=== PATIENT | male | born 1935 | race Caucasian/White ===

== ENCOUNTER 2017-06-20 18:00 | Inpatient (IN) | payer MEDICARE ==
[2017-06-20] MEDS ORDERED: Sodium Chloride 0.9% 1,000 ML IV ONE (19:21)
--- NOTE | 2017-06-20 19:23 | C.PDOC ---
History Of Present Illness 82 year old male with PMHx of DM presents to the ED for evaluation of high blood sugar and dizziness for approximately a week. Patient states he has been having also urinary frequency, excessive thirst also for the past week. Patient states he went to see his PMD yesterday who gave him some insulin to control his DM.Patient also states having some nausea, vomit and abdominal pain as well for the past few days .Patient reports he started taking pills for his DM and now is using insulin. Patient denies SOB, CP, diarrhea, abdominal pain, weakness , numbness. Chief Complaint (Nursing): High Blood Sugar History Per: Patient History/Exam Limitations: no limitations Onset/Duration Of Symptoms: Days Current Symptoms Are (Timing): Still Present Current Diabetic Medications: Insulin Associated Infectious Symptoms: Urinary Frequency, Nausea, Vomiting Recent travel outside of the [place]: No Additional History Per: Patient Past Medical History Reviewed: Historical Data, Nursing Documentation, Vital Signs Vital Signs: Last Vital Signs Temp 98.0 F 06/20/17 18:18 Pulse 83 06/20/17 18:18 Resp 22 06/20/17 18:18 BP 162/60 H 06/20/17 18:18 Pulse Ox 95 06/21/17 02:48 - Medical History PMH: Diabetes, HTN, Hypercholesterolemia Denies: Chronic Kidney Disease Surgical History: CABG (X4) - [facility] Procedures MEASURE OF CARDIAC SAMPL & PRESSURE, L HEART, PERC APPROACH (07/12/15) PLAIN RADIOGRAPHY OF LEFT HEART USING OTHER CONTRAST (07/12/15) PLAIN RADIOGRAPHY OF MULT COR ART USING OTH CONTRAST (07/12/15) Family History: States: Unknown Family Hx - Social History Hx Alcohol Use: No Hx Substance Use: No - Immunization History Hx Tetanus Toxoid Vaccination: No Hx Influenza Vaccination: No Hx Pneumococcal Vaccination: No Review Of Systems Constitutional: Negative for: Fever, Chills Cardiovascular: Negative for: Chest Pain Respiratory: Negative for: Cough, Shortness of Breath Gastrointestinal: Positive for: Nausea, Vomiting. Negative for: Abdominal Pain , Diarrhea Genitourinary: Positive for: Frequency Skin: Negative for: Rash Neurological: Positive for: Dizziness. Negative for: Weakness, Numbness, Headache Physical Exam - Physical Exam Appears: Non-toxic, No Acute Distress Skin: Normal Color, Warm, Dry Head: Atraumatic, Normacephalic Eye(s): bilateral: Normal Inspection Nose: No Discharge, No Deformity Oral Mucosa: Moist Neck: Normal ROM, Supple Chest: Symmetrical, Other (sternotomy scar) Cardiovascular: Rhythm Regular, No Murmur Respiratory: Normal Breath Sounds, No Rales, No Rhonchi, No Wheezing Gastrointestinal/Abdominal: Soft, No Tenderness, No Guarding, No Rebound Extremity: Normal ROM, No Tenderness, No Pedal Edema, No Swelling Neurological/Psych: Oriented x3, Normal Speech, Normal Cognition Gait: Steady ED Course And Treatment - Laboratory Results Result Diagrams: 06/20/17 19:48 06/20/17 19:48 O2 Sat by Pulse Oximetry: 95 (ON RA) Pulse Ox Interpretation: Normal - CT Scan/US US abdomen Other Rad Studies (CT/US): Read By Radiologist, Radiology Report Reviewed CT/US Interpretation: EXAM: US Abdomen Limited, Right Upper Quadrant. CLINICAL HISTORY: 82 years old, male; Pain; Abdominal pain; Epigastric. TECHNIQUE: Real-time ultrasound of the right upper quadrant with image documentation. COMPARISON: No relevant prior studies available. FINDINGS: Artifacts: Limited due to bowel gas shadowing. Limited due to shadowing from the ribs. Liver: The liver measures 15.10 cm. Limited evaluation of the liver due to shadowing. There is. hepatic pedal flow in the portal vein. Gallbladder : There is distention of gallbladder with gallstones. The gallbladder wall measures 1. mm.There was no right upper quadrant tenderness during the sonographic examination. Correlation. with patient's pain medication status is recommended. Common bile duct: The common bile duct measures 7 mm which is normal for patient's age. Pancreas: The pancreas is not well-seen. Echogenic pancreas. Right kidney: The right kidney measures 9.6 x 5.0 x 5.6 cm. No stones. No hydronephrosis. Aorta: Limited visualization of proximal aorta measuring 2.3 cm. IMPRESSION: 1. There is distention of gallbladder with gallstones. The gallbladder wall measures 1 mm.There was. no right upper quadrant tenderness during the sonographic examination. Correlation with patient 's. pain medication status is recommended. Medical Decision Making Medical Decision Making: Impression: High blood sugar vs DM Plan: * Labs * Elevated transaminaces and elevated billirubin * IV fluids * Zofran 4 mg IVP * US abdomen Disposition - Disposition Disposition: HOSPITALIZED Disposition Time: 02:47 Condition: GUARDED Forms: [facility] (Italian) - Clinical Impression Clinical Impression: Choledocholithiasis, Hyperglycemia - Scribe Statement The provider has reviewed the documentation as recorded by the Scribe Amaury Stevenson All medical record entries made by the Scribe were at my direction and personally dictated by me. I have reviewed the chart and agree that the record accurately reflects my personal performance of the history, physical exam, medical decision making, and the department course for this patient. I have also personally directed, reviewed, and agree with the discharge instructions and disposition.
[2017-06-20] MEDS ORDERED: Sodium Chloride 0.9% 1,000 ML ONE (19:28)
[2017-06-20 19:55] LABS: BASO # 0.1 K/uL (0.0-0.2); BASO % 1.1 % (0.0-2.0); EOS # 0.2 K/uL (0.0-0.7); EOS % 2.3 % (0.0-4.0); HEMOGLOBIN 12.3 g/dL (12.0-18.0); LYMPH # 3.6 K/uL (1.0-4.3); LYMPH % 36.7 % (20.0-40.0); MEAN CELL VOLUME 92.4 fL (80.0-94.0); MEAN CORPUSCULAR HEMOGLOBIN 31.8 pg (27.0-31.0); MEAN CORPUSCULAR HGB CONC 34.4 g/dL (33.0-37.0); MEAN PLATELET VOLUME 9.7 fL (7.2-11.7); MONO # 0.7 K/uL (0.0-0.8); MONO % 6.6 % (0.0-10.0); NEUT # 5.3 K/uL (1.8-7.0); NEUT % 53.3 % (50.0-75.0); RBC 3.87 Mil/uL (4.40-5.90); RED CELL DISTRIBUTION WIDTH 14.2 % (11.5-14.5); WHITE BLOOD COUNT 9.9 K/uL (4.8-10.8)
[2017-06-20 20:14] LABS: ALBUMIN 3.8 g/dL (3.5-5.0); ALT/SGPT 201 U/L (21-72); AST/SGOT 106 U/L (17-59); BLOOD UREA NITROGEN 21 mg/dL (9-20); CALCIUM 9.1 mg/dl (8.6-10.4); GFR AFRICAN-AMERICAN > 60; GFR NON-AFRICAN AMERICAN > 60; LIPASE 137 U/L (23-300)
[2017-06-21] MEDS ORDERED: (Novolin R) Insulin Human Regular 100 units/ml vial IV ONE (00:44)
[2017-06-21] MEDS ORDERED: (Novolin R) Insulin Human Regular 100 units/ml vial ONE (00:51)
--- NOTE | 2017-06-21 02:41 | US ---
EXAM: US Abdomen Limited, Right Upper Quadrant CLINICAL HISTORY: 82 years old, male; Pain; Abdominal pain; Epigastric TECHNIQUE: Real-time ultrasound of the right upper quadrant with image documentation. COMPARISON: No relevant prior studies available. FINDINGS: Artifacts: Limited due to bowel gas shadowing. Limited due to shadowing from the ribs. Liver: The liver measures 15.10 cm. Limited evaluation of the liver due to shadowing. There is hepatic pedal flow in the portal vein. Gallbladder: There is distention of gallbladder with gallstones. The gallbladder wall measures 1 mm.There was no right upper quadrant tenderness during the sonographic examination. Correlation with patient's pain medication status is recommended. Common bile duct: The common bile duct measures 7 mm which is normal for patient's age. Pancreas: The pancreas is not well-seen. Echogenic pancreas. Right kidney: The right kidney measures 9.6 x 5.0 x 5.6 cm. No stones. No hydronephrosis. Aorta: Limited visualization of proximal aorta measuring 2.3 cm. IMPRESSION: 1. There is distention of gallbladder with gallstones. The gallbladder wall measures 1 mm.There was no right upper quadrant tenderness during the sonographic examination. Correlation with patient's pain medication status is recommended.
--- NOTE | 2017-06-21 05:16 | CP.PCM.CON ---
History of Present Illness - History of Present Illness History of Present Illness: General Surgery Dr. Lea 82 y/o M w/ PMHx of CAD and uncontrolled DM2 presents to the ED c/o elevated blood glucose and dizziness x1wk. Over the last week, pt also reports concordant polyuria and polydipsia. Pt was seen by PMD yesterday and was started on insulin. Pt reports nause and NBNB vomiting x2-3 episodes yesterday. Pt denies F/C, PO intolerance, abd pain, D/C. PMHx: see above, HTN, HLD Meds: reviewed in chart NKDA PSHx: CABG SHx: denies tobacco, EtOH, drug use FHx: noncontributory Review of Systems - Review of Systems All systems: reviewed and no additional remarkable complaints except (see HPI) Past Patient History - Infectious Disease Hx of Infectious Diseases: None - Past Medical History & Family History Past Medical History?: Yes - Past Social History Smoking Status: Never Smoked - CARDIAC Hx Hypercholesterolemia: Yes Hx Hypertension: Yes - PULMONARY Hx Respiratory Disorders: No - NEUROLOGICAL Hx Neurological Disorder: No - HEENT Hx HEENT Problems: No - RENAL Hx Chronic Kidney Disease: No - ENDOCRINE/METABOLIC Hx Endocrine Disorders: Yes Hx Diabetes Mellitus Type 2: Yes - HEMATOLOGICAL/ONCOLOGICAL Hx Blood Disorders: No - INTEGUMENTARY Hx Dermatological Problems: No - MUSCULOSKELETAL/RHEUMATOLOGICAL Hx Musculoskeletal Disorders: No Hx Falls: Yes - GASTROINTESTINAL Hx Gastrointestinal Disorders: No - GENITOURINARY/GYNECOLOGICAL Hx Genitourinary Disorders: No - PSYCHIATRIC Hx Substance Use: No - SURGICAL HISTORY Hx Coronary Artery Bypass Graft: Yes (X4) - ANESTHESIA Hx Anesthesia: Yes Hx Anesthesia Reactions: No Hx Malignant Hyperthermia: No Meds Allergies/Adverse Reactions: Allergies Allergy/AdvReac Type Severity Reaction Status Date / Time No Known Allergies Allergy Verified 07/11/15 14:18 Physical Exam - Constitutional Appears: Non-toxic, No Acute Distress - Head Exam Head Exam: NORMAL INSPECTION - Eye Exam Eye Exam: Normal appearance - ENT Exam ENT Exam: Mucous Membranes Moist - Respiratory Exam Respiratory Exam: NORMAL BREATHING PATTERN. absent: Accessory Muscle Use, Respiratory Distress - GI/Abdominal Exam GI & Abdominal Exam: Soft. absent: Distended, Firm, Guarding, Rebound, Tenderness - Expanded GI/Abdominal Exam Expanded Expanded GI & Abdominal Exam: absent: Mckeon's Sign - Extremities Exam Extremities exam: Positive for: normal inspection. Negative for: pedal edema - Neurological Exam Neurological exam: Alert, Oriented x3 - Psychiatric Exam Psychiatric exam: Normal Affect, Normal Mood - Skin Skin Exam: Dry, Intact, Normal Color, Warm Results - Vital Signs Recent Vital Signs: Last Vital Signs Temp 98.3 F 06/21/17 04:43 Pulse 83 06/21/17 04:43 Resp 20 06/21/17 04:43 BP 149/80 06/21/17 04:43 Pulse Ox 98 06/21/17 04:43 - Labs Result Diagrams: 06/20/17 19:48 06/20/17 19:48 Labs: Laboratory Results - last 24 hr 06/20/17 06/20/17 06/20/17 19:48 19:48 20:41 WBC 9.9 RBC 3.87 L Hgb 12.3 Hct 35.8 MCV 92.4 MCH 31.8 H MCHC 34.4 RDW 14.2 Plt Count 391 MPV 9.7 Neut % (Auto) 53.3 Lymph % (Auto) 36.7 [place] % (Auto) 6.6 Eos % (Auto) 2.3 Baso % (Auto) 1.1 Neut # (Auto) 5.3 Lymph # (Auto) 3.6 [place] # (Auto) 0.7 Eos # (Auto) 0.2 Baso # (Auto) 0.1 Sodium 132 Potassium 4.0 Chloride 94 L Carbon Dioxide 27 Anion Gap 15 BUN 21 H Creatinine 1.0 Est GFR ( Amer) > 60 Est GFR (Non-Af Amer) > 60 POC Glucose (mg/dL) 317 H Random Glucose 421 H* D Calcium 9.1 Total Bilirubin 2.2 H AST 106 H ALT 201 H D Alkaline Phosphatase 1299 H Total Protein 7.7 Albumin 3.8 Globulin 3.9 Albumin/Globulin Ratio 1.0 Lipase 137 06/20/17 06/21/17 06/21/17 22:00 00:05 03:06 WBC RBC Hgb Hct MCV MCH MCHC RDW Plt Count MPV Neut % (Auto) Lymph % (Auto) [place] % (Auto) Eos % (Auto) Baso % (Auto) Neut # (Auto) Lymph # (Auto) [place] # (Auto) Eos # (Auto) Baso # (Auto) Sodium Potassium Chloride Carbon Dioxide Anion Gap BUN Creatinine Est GFR ( Amer) Est GFR (Non-Af Amer) POC Glucose (mg/dL) 332 H 283 H 200 H Random Glucose Calcium Total Bilirubin AST ALT Alkaline Phosphatase Total Protein Albumin Globulin Albumin/Globulin Ratio Lipase - Imaging and Cardiology US - abdomen Status: Image reviewed by me, Report reviewed by me Assessment & Plan - Assessment and Plan (Free Text) Assessment: 82 y/o M w/ uncontrolled DM2 and cholelithiasis - Abd US: cholelithiasis but no signs of acute cholecystitis or choledocholithiais - elevated LFTs --> hepatitis panel; GI consult - medical management for uncontrolled DM2 - trend LFTs - no surgical intervention at this time Will discuss w/ Dr. Venu Branham DO PGY2
[2017-06-21] MEDS: Enoxaparin 40 mg Syringe SC SCH (11:02)
[2017-06-21] MEDS ORDERED: (Novolog Mix 70/30) Insulin Aspart/Insulin Aspar 100 units/ml SC SCH ×2 (11:30→22:00)
[2017-06-21] MEDS: Metoprolol Succinate 50 mg XL Tab PO SCH (12:36)
[2017-06-21] MEDS: Pantoprazole 40 mg EC Tab PO SCH (12:36)
[2017-06-21] MEDS: (Novolog Mix 70/30) Insulin Aspart/Insulin Aspar 100 units/ml SC SCH (12:37)
[2017-06-21 13:51] LABS: HEMOGLOBIN 11.7 g/dL (12.0-18.0); MEAN CELL VOLUME 92.9 fL (80.0-94.0); MEAN CORPUSCULAR HEMOGLOBIN 32.4 pg (27.0-31.0); MEAN CORPUSCULAR HGB CONC 34.8 g/dL (33.0-37.0); MEAN PLATELET VOLUME 9.5 fL (7.2-11.7); RBC 3.62 Mil/uL (4.40-5.90); RED CELL DISTRIBUTION WIDTH 14.4 % (11.5-14.5); WHITE BLOOD COUNT 8.2 K/uL (4.8-10.8)
[2017-06-21 14:15] LABS: ALBUMIN 3.5 g/dL (3.5-5.0); ALT/SGPT 153 U/L (21-72); AST/SGOT 85 U/L (17-59); BLOOD UREA NITROGEN 19 mg/dL (9-20); CALCIUM 8.5 mg/dl (8.6-10.4); GFR AFRICAN-AMERICAN > 60; GFR NON-AFRICAN AMERICAN > 60
[2017-06-21] MEDS ORDERED: (Novolog) Insulin Aspart, Recombinant 100 u/ml 10 ml vial SC ONE (14:30)
--- NOTE | 2017-06-21 14:35 | CP.PCM.PN ---
Subjective - Date & Time of Evaluation Date of Evaluation: 06/21/17 Time of Evaluation: 14:35 - Subjective Subjective: PATIENT WAS ADMITTING FOR CHOLECHOLITHIASIS; PATIENT IS AAO X 3; DENIES CHEST PAIN SOB, NAUSEA OR VOMITING NO SIGN OF DISTRESS NOTED Objective - Vital Signs/Intake and Output Vital Signs (last 24 hours): Temp Pulse Resp BP Pulse Ox 97.6 F 79 20 162/81 H 96 06/21/17 08:25 06/21/17 08:25 06/21/17 08:25 06/21/17 08:25 06/21/17 08:25 - Medications Medications: Current Medications Aspirin (Ecotrin) 81 mg PO DAILY [facility] Last Admin: 06/21/17 12:37 Dose: 81 mg Enoxaparin Sodium (Lovenox) 40 mg SC DAILY [facility] Last Admin: 06/21/17 11:02 Dose: 40 mg Cefepime HCl (Maxipime Iv 1 Gm Premix) 1 gm in 50 mls @ 100 mls/hr IVPB Q12H [facility] Insulin Aspart (Novolog Mix 70/30 (70/30 Units/Ml)) 50 units SC HS [facility] Insulin Aspart (Novolog Mix 70/30 (70/30 Units/Ml)) 40 units SC DAILY [facility] Last Admin: 06/21/17 12:37 Dose: 40 units Insulin Aspart (Novolog) 4 unit SC ONCE ONE Stop: 06/21/17 14:31 Levothyroxine Sodium (Synthroid) 25 mcg PO DAILY@0630 [facility] Losartan Potassium (Cozaar) 50 mg PO DAILY [facility] Last Admin: 06/21/17 12:36 Dose: 50 mg Metoprolol Succinate (Toprol Xl) 50 mg PO DAILY [facility] Last Admin: 06/21/17 12:36 Dose: 50 mg Pantoprazole Sodium (Protonix Ec Tab) 40 mg PO DAILY [facility] Last Admin: 06/21/17 12:36 Dose: 40 mg Rosuvastatin Calcium (Crestor) 5 mg PO HS [facility] - Labs Labs: 06/21/17 13:45 06/21/17 13:45 Assessment and Plan - Assessment and Plan (Free Text) Assessment: PATIENT WAS SEEN AND EXAMINED AT THE BEDSIDE GALLBLADDER US SHOW DISTENTION OF THE GALLBLADDER WITH GALLSTONE MEASURE 1MM AND NO RIGHT QUADRAT PAIN NOTED DISCUSS WITH PMD AND SX TEAM NO SURGICAL INTERVENTION AT THIS TIME FOLLOW UP WITH DR Faina BENOIT IN A WEEK AT HIS OFFICE ---CALL FOR APPOINTMENT CONTINUE ALL YOUR HOME MEDICATION ORDER ACTIVITY TOLERATED CALL DR BENOIT OR GO TO THE EMERGENCY ROOM IF SYMPTOM RETURN OR WORSENING DISCUSS WITH PATIENT WHO AGREE AND VERBALIZED UNDERSTANDING
[2017-06-21 15:32] LABS: EOS # 0.1 K/uL (0.0-0.7); LYMPH # 1.7 K/uL (1.0-4.3); MONO # 0.5 K/uL (0.0-0.8)
[2017-06-21] MEDS: Cefepime IV 1 gm in Dextrose 1 GM/50 ML BAG IVPB SCH (16:20)
[2017-06-21] MEDS ORDERED: (Novolog) Insulin Aspart, Recombinant 100 u/ml 10 ml vial SC SCH (16:30)
--- NOTE | 2017-06-21 18:43 | CP.PCM.HP ---
Past Patient History - Infectious Disease Hx of Infectious Diseases: None - Past Medical History & Family History Past Medical History?: Yes - Past Social History Smoking Status: Never Smoked - CARDIAC Hx Cardiac Disorders: Yes (CAD, CABGx4) Hx Hypercholesterolemia: Yes Hx Hypertension: Yes - PULMONARY Hx Respiratory Disorders: No - NEUROLOGICAL Hx Neurological Disorder: No - HEENT Hx HEENT Problems: No - RENAL Hx Chronic Kidney Disease: No - ENDOCRINE/METABOLIC Hx Diabetes Mellitus Type 2: Yes - HEMATOLOGICAL/ONCOLOGICAL Hx Blood Disorders: No - INTEGUMENTARY Hx Dermatological Problems: No - MUSCULOSKELETAL/RHEUMATOLOGICAL Hx Musculoskeletal Disorders: No Hx Falls: Yes - GASTROINTESTINAL Hx Gastrointestinal Disorders: No - GENITOURINARY/GYNECOLOGICAL Hx Genitourinary Disorders: No - PSYCHIATRIC Hx Substance Use: No - SURGICAL HISTORY Hx Coronary Artery Bypass Graft: Yes (X4) - ANESTHESIA Hx Anesthesia: Yes Hx Anesthesia Reactions: No Hx Malignant Hyperthermia: No Meds Home Medications: Home Medication List Medication Instructions Recorded Confirmed Type Aspirin [Ecotrin] 81 mg PO DAILY tabec 06/21/17 Rx Insulin Aspart/Insulin Aspar 40 units SC DAILY unit 06/21/17 Rx [Novolog Mix 70/30 (70/30 units/ml)] Insulin Aspart/Insulin Aspar 50 units SC HS unit 06/21/17 Rx [Novolog Mix 70/30 (70/30 units/ml)] Levothyroxine [Synthroid] 25 mcg PO DAILY@0630 tab 06/21/17 Rx Losartan [Cozaar] 50 mg PO DAILY tab 06/21/17 Rx Metoprolol Succinate [Toprol XL] 50 mg PO DAILY tab 06/21/17 Rx Pantoprazole [Protonix EC Tab] 40 mg PO DAILY ect 06/21/17 Rx Allergies/Adverse Reactions: Allergies Allergy/AdvReac Type Severity Reaction Status Date / Time No Known Allergies Allergy Verified 07/11/15 14:18 Physical Exam - Constitutional Appears: Well - Head Exam Head Exam: ATRAUMATIC, NORMAL INSPECTION, NORMOCEPHALIC - Eye Exam Eye Exam: EOMI, Normal appearance, PERRL Pupil Exam: NORMAL ACCOMODATION, PERRL - ENT Exam ENT Exam: Mucous Membranes Moist, Normal Exam - Neck Exam Neck exam: Positive for: Normal Inspection - Respiratory Exam Respiratory Exam: Decreased Breath Sounds - Cardiovascular Exam Cardiovascular Exam: REGULAR RHYTHM, +S1, +S2 - GI/Abdominal Exam GI & Abdominal Exam: Diminished Bowel Sounds, Soft - Rectal Exam Rectal Exam: Deferred Results - Vital Signs Recent Vital Signs: Last Vital Signs Temp 97.6 F 06/21/17 08:25 Pulse 79 06/21/17 08:25 Resp 20 06/21/17 08:25 BP 162/81 H 06/21/17 08:25 Pulse Ox 96 06/21/17 08:25 - Labs Result Diagrams: 06/21/17 13:45 06/21/17 13:45 Labs: Laboratory Results - last 24 hr 06/20/17 06/20/17 06/20/17 19:48 19:48 20:41 WBC 9.9 RBC 3.87 L Hgb 12.3 Hct 35.8 MCV 92.4 MCH 31.8 H MCHC 34.4 RDW 14.2 Plt Count 391 MPV 9.7 Neut % (Auto) 53.3 Lymph % (Auto) 36.7 [place] % (Auto) 6.6 Eos % (Auto) 2.3 Baso % (Auto) 1.1 Neut # (Auto) 5.3 Lymph # (Auto) 3.6 [place] # (Auto) 0.7 Eos # (Auto) 0.2 Baso # (Auto) 0.1 Sodium 132 Potassium 4.0 Chloride 94 L Carbon Dioxide 27 Anion Gap 15 BUN 21 H Creatinine 1.0 Est GFR ( Amer) > 60 Est GFR (Non-Af Amer) > 60 POC Glucose (mg/dL) 317 H Random Glucose 421 H* D Calcium 9.1 Total Bilirubin 2.2 H AST 106 H ALT 201 H D Alkaline Phosphatase 1299 H Total Protein 7.7 Albumin 3.8 Globulin 3.9 Albumin/Globulin Ratio 1.0 Lipase 137 06/20/17 06/21/17 06/21/17 22:00 00:05 03:06 WBC RBC Hgb Hct MCV MCH MCHC RDW Plt Count MPV Neut % (Auto) Lymph % (Auto) [place] % (Auto) Eos % (Auto) Baso % (Auto) Neut # (Auto) Lymph # (Auto) [place] # (Auto) Eos # (Auto) Baso # (Auto) Sodium Potassium Chloride Carbon Dioxide Anion Gap BUN Creatinine Est GFR ( Amer) Est GFR (Non-Af Amer) POC Glucose (mg/dL) 332 H 283 H 200 H Random Glucose Calcium Total Bilirubin AST ALT Alkaline Phosphatase Total Protein Albumin Globulin Albumin/Globulin Ratio Lipase 06/21/17 06/21/17 06/21/17 07:25 11:35 13:45 WBC 8.2 RBC 3.62 L Hgb 11.7 L Hct 33.6 L MCV 92.9 MCH 32.4 H MCHC 34.8 RDW 14.4 Plt Count 349 MPV 9.5 Neut % (Auto) 73.0 Lymph % (Auto) 20.0 [place] % (Auto) 6.0 Eos % (Auto) 1.0 Baso % (Auto) 0.0 Neut # (Auto) 6.0 Lymph # (Auto) 1.7 [place] # (Auto) 0.5 Eos # (Auto) 0.1 Baso # (Auto) 0.0 Sodium Potassium Chloride Carbon Dioxide Anion Gap BUN Creatinine Est GFR ( Amer) Est GFR (Non-Af Amer) POC Glucose (mg/dL) 201 H 362 H Random Glucose Calcium Total Bilirubin AST ALT Alkaline Phosphatase Total Protein Albumin Globulin Albumin/Globulin Ratio Lipase 06/21/17 06/21/17 13:45 17:07 WBC RBC Hgb Hct MCV MCH MCHC RDW Plt Count MPV Neut % (Auto) Lymph % (Auto) [place] % (Auto) Eos % (Auto) Baso % (Auto) Neut # (Auto) Lymph # (Auto) [place] # (Auto) Eos # (Auto) Baso # (Auto) Sodium 130 L Potassium 4.4 Chloride 92 L Carbon Dioxide 25 Anion Gap 17 BUN 19 Creatinine 1.0 Est GFR ( Amer) > 60 Est GFR (Non-Af Amer) > 60 POC Glucose (mg/dL) 272 H Random Glucose 427 H* Calcium 8.5 L Total Bilirubin 2.9 H AST 85 H ALT 153 H D Alkaline Phosphatase 1222 H Total Protein 6.9 Albumin 3.5 Globulin 3.4 Albumin/Globulin Ratio 1.0 Lipase
[2017-06-22 01:53] VITALS: RESP 20; O2SAT 98
[2017-06-22] MEDS: Cefepime IV 1 gm in Dextrose 1 GM/50 ML BAG IVPB SCH (02:30)
[2017-06-22] MEDS ORDERED: Levothyroxine 25 MCG TAB PO SCH (06:30)
[2017-06-22 09:01] VITALS: BP 140/75; PULSE 78; TEMP 97.8
--- NOTE | 2017-06-22 09:26 | CP.PCM.PN ---
Subjective - Date & Time of Evaluation Date of Evaluation: 06/22/17 Time of Evaluation: 08:00 - Subjective Subjective: General Surgery- Dr. Lea Pt S&E at bedside this AM. no acute events overnight. Denies N/V. abdominal pain completely resolved. + OOB and ambulating Objective - Vital Signs/Intake and Output Vital Signs (last 24 hours): Temp Pulse Resp BP Pulse Ox 97.8 F 78 20 140/75 98 06/22/17 08:10 06/22/17 08:10 06/22/17 08:10 06/22/17 08:10 06/22/17 00:00 Intake and Output: 06/22/17 06/22/17 06:59 18:59 Intake Total 600 Balance 600 - Medications Medications: Current Medications Aspirin (Ecotrin) 81 mg PO DAILY [facility] Last Admin: 06/21/17 12:37 Dose: 81 mg Docusate Sodium (Colace) 100 mg PO TID REPLACED BY [facility] Last Admin: 06/21/17 18:55 Dose: 100 mg Enoxaparin Sodium (Lovenox) 40 mg SC DAILY REPL[facility] Last Admin: 06/21/17 11:02 Dose: 40 mg Cefepime HCl (Maxipime Iv 1 Gm Premix) 1 gm in 50 mls @ 100 mls/hr IVPB Q12H [facility] Last Admin: 06/22/17 02:30 Dose: 100 mls/hr Insulin Aspart (Novolog Mix 70/30 (70/30 Units/Ml)) 50 units SC [facility] Last Admin: 06/21/17 21:42 Dose: 50 units Insulin Aspart (Novolog Mix 70/30 (70/30 Units/Ml)) 40 units SC DAILY [facility] Last Admin: 06/21/17 12:37 Dose: 40 units Levothyroxine Sodium (Synthroid) 25 mcg PO DAILY@0630 [facility] Last Admin: 06/22/17 05:33 Dose: 25 mcg Losartan Potassium (Cozaar) 50 mg PO DAILY REPL[facility] Last Admin: 06/21/17 12:36 Dose: 50 mg Metoprolol Succinate (Toprol Xl) 50 mg PO DAILY REPLACED BY [facility] Last Admin: 06/21/17 12:36 Dose: 50 mg Pantoprazole Sodium (Protonix Ec Tab) 40 mg PO DAILY REPLACED BY [facility] Last Admin: 06/21/17 12:36 Dose: 40 mg Rosuvastatin Calcium (Crestor) 5 mg PO [facility] Last Admin: 06/21/17 21:41 Dose: 5 mg - Labs Labs: 06/21/17 13:45 06/21/17 13:45 - Constitutional Appears: Non-toxic, No Acute Distress - Head Exam Head Exam: ATRAUMATIC - Eye Exam Eye Exam: EOMI. absent: Scleral icterus - ENT Exam ENT Exam: Mucous Membranes Moist - Respiratory Exam Respiratory Exam: NORMAL BREATHING PATTERN. absent: Accessory Muscle Use, Respiratory Distress - Cardiovascular Exam Cardiovascular Exam: +S1, +S2. absent: Bradycardia, Tachycardia - GI/Abdominal Exam GI & Abdominal Exam: Soft. absent: Distended, Firm, Guarding, Rigid, Tenderness - Extremities Exam Extremities Exam: Normal Inspection. absent: Calf Tenderness - Back Exam Back Exam: absent: CVA tenderness (L), CVA tenderness (R) - Neurological Exam Neurological Exam: Alert, Awake, Oriented x3 - Psychiatric Exam Psychiatric exam: Normal Affect - Skin Skin Exam: Intact, Warm Assessment and Plan - Assessment and Plan (Free Text) Assessment: 82 y/o M w/ uncontrolled DM2 and cholelithiasis Plan: - recommend GI consult for elevated LFTs --> hepatitis panel - start CLD - medical management for uncontrolled DM2 - trend LFTs - no acute surgical intervention at this time - further recs per Dr. Lea surgical attending Herbert Bear PGY1
[2017-06-22] MEDS: (Novolog Mix 70/30) Insulin Aspart/Insulin Aspar 100 units/ml SC SCH (10:52)
[2017-06-22] MEDS: Pantoprazole 40 mg EC Tab PO SCH (10:52)
[2017-06-22] MEDS: Metoprolol Succinate 50 mg XL Tab PO SCH (10:52)
[2017-06-22] MEDS: Enoxaparin 40 mg Syringe SC SCH (10:52)
== END 2017-06-22 14:00 | disposition home or self-care (01) | DRG 639 ==
LOC: C.ER 18:00 → C.9E 06-21 03:08 → C.5S 06-21 07:09
PROVIDERS: ADMIT Internal Medicine Nephrology; ATTEND Internal Medicine Nephrology
DX: E11.65 Type 2 diabetes mellitus with hyperglycemia (principal); K80.70 Calculus of gallbladder and bile duct without cholecystitis without obstruction; Z95.1 Presence of aortocoronary bypass graft; E78.5 Hyperlipidemia, unspecified; I10 Essential (primary) hypertension; I25.10 Atherosclerotic heart disease of native coronary artery without angina pectoris